=== PATIENT | male | born 1980 | race Caucasian/White ===

== ENCOUNTER 2019-06-24 18:02 | Emergency (ER) | payer OTHER ==
[~2019-06-24] VITALS: Ht 180.3 cm; Wt 102.1 kg
[2019-06-24] MEDS ORDERED: ZIAC 5-6.25 MG1 EACH PO (18:33)
== END 2019-06-24 21:54 | disposition home or self-care (01) ==
LOC: ER 18:02
DX: K80.80 Other cholelithiasis without obstruction (principal); R10.31 Right lower quadrant pain